=== PATIENT | female | born 1965 | race Caucasian/White ===

== ENCOUNTER 2024-10-16 10:33 | Observation (INO) ==
[2024-10-16 11:23] LABS: Basophils%(Percent) Auto 0.2 (0.1-0.85); Granulocytes % - Auto 84.2 % (47.8-71.3); Granulocytes#(Absolute)- Auto 4.4 (2.3-6.0); Hematocrit 38.1 % (35.9-46.7); Mean Corpuscular Volume 96.2 fl (81.0-93.7); Monocytes #(Absolute)- Auto 0.3 (1.1-3.1); Monocytes %(Percent)- Auto 4.9 % (3.6-9.8); Platelet Count 100 K/uL (152-353); White Blood Count 5.2 K/uL (4.3-9.3)
[2024-10-16] MEDS ORDERED: BUDESONIDE 0.5 MG/2 ML AMPUL.NEB INH ONE (11:24)
--- NOTE | 2024-10-16 11:24 | Emergency Department Note ---
HPI - General Adult General Chief complaint: SOB -Shortness of Breath Stated complaint: sent for fluids Time Seen by Provider: 10/16/24 10:42 Source: patient Mode of arrival: walk-in Limitations: no limitations History of Present Illness HPI narrative: This is a 59 year old female patient that presents to the ER with c/o cough, congestion, wheezing, SOB, for 3 days. Patient states she started antibiotics yesterday and steroids and is not feeling any better. Patient received 3 duonebs at her PCP today and steroids and still is wheezing. patient denies any chest pain, back pain, abdominal pain, numbness, tingling, weakness or N/V/D. Patients O2 sats at PCP was 80%RA per PCP Associated symptoms: Reports cough and shortness of breath Treatments prior to arrival: Reports other (duonebs x3, decadron, IVF) Related Data Allergies Allergy/AdvReac Type Severity Reaction Status Date / Time promethazine (From Phenergan) Allergy Verified 10/16/24 10:57 Sulfa (Sulfonamide Allergy Verified 10/16/24 10:57 Antibiotics) Review of Systems Status of ROS 10 or more systems reviewed and unremark able except as noted in history and below Constitutional Denies: fever, chills, change in weight, fatigue, malaise or night sweats Eyes Denies: change in vision, blurry vision, blind spots, light sensitivity, eye discomfort or eye discharge Ears, nose, mouth, and throat Denies: throat pain, neck pain, throat swelling, difficulty swallowing or hoarseness Cardiovascular Reports: shortness of breath with exertion; Denies: chest pain, palpitations, edema, swelling of feet/ankles, lightheadedness, shortness of breath when lying down, leg pain with exertion or bluish discoloration of hands/feet Respiratory Reports: shortness of breath, cough, wheezing and chest congestion; Denies: stridor, pain on inspiration, change in phlegm color or coughing up blood Gastrointestinal Denies: abdominal pain, nausea, vomiting, coffee grounds in vomit, heartburn, diarrhea or constipation Genitourinary Denies: painful urination, urinary frequency, urinary urgency, urinary incontinence or blood in urine Musculoskeletal Denies: back pain, neck pain, extremity pain, extremity swelling, joint pain or limited range of motion Integumentary/Breast Denies: rash, itching, redness, skin pain, skin tenderness, skin swelling or sores Neurological Denies: headache, numbness in extremities, weakness in extremities, lack of coordination, dizziness or vertigo Psychiatric Denies: anxiety, mood swings, panic attacks, change in sleep pattern, hopelessness or loss of interest Endocrine Denies: excessive urination, excessive thirst, fatigue, cold intolerance or excessive sweating Hematologic/Lymphatic Denies: easy bruising, easy bleeding or enlarged lymph nodes Allergic/Immunologic Reports: wheezing; Denies: hives, throat swelling, tongue swelling, facial swelling, itchy eyes or seasonal allergies [facility] Medical History (Updated 10/16/24 @ 11:18 by Dede Bah, RN) Pneumonia COVID GERD (gastroesophageal reflux disease) Insomnia Anxiety Surgical History (Updated 10/16/24 @ 11:18 by Dede Bah, RN) History of foot surgery History of cholecystectomy History of tubal ligation Previous section Social History Smoking status: unknown if ever smoked Exam Constitutional: normal general appearance and no apparent distress Vital Signs - 24 hr 10/16/24 10:42 10/16/24 11:35 Temperature 97.7 F Pulse Rate 113 H Respiratory Rate 18 Blood Pressure 130/72 Pulse Oximetry 95 95 HENMT: normocephalic, head/scalp atraumatic, hearing grossly normal bilaterally, external ears normal, nasal mucous membranes normal, external nose normal, oral mucous membranes normal and oropharynx normal Eyes: PERRL, EOMs intact bilaterally, conjunctivae normal and no scleral icterus Neck/C-Spine: visual inspection normal and trachea midline Lymph: no lymphadenopathy noted Chest: inspection of chest normal Respiratory: breath sounds equal bilaterally, normal respiratory effort, auscultation abnormal (diminished breath sound), wheezing noted (scattered wheezes), no rales, no retractions, no use of accessory muscles and chest percussion normal Cardiovascular: normal heart rate noted, regular rhythm noted, no gallop, no rub, no murmur, no JVD, no clicks, peripheral pulses 2+ throughout, no bruits noted and no additional abnormal heart sounds Gastrointestinal: abdomen normal to inspection, abdomen soft to palpation, nontender to palpation, nontender to percussion, nondistended, normoactive bowel sounds, no hepatosplenomegaly, no masses, no pulsatile mass, no ascites and no hernia Genitourinary: no CVA tenderness Back/Pelvis: spine normal to inspection Extremities: normal to inspection, normal to palpation, no tenderness, full ROM, no joint enlargement and no deformity Neurology: no movement abnormality noted, no focal motor deficit noted, no sensory deficits noted, gait normal, speech normal, coordination normal, no pronator drift noted, no fasciculations noted and GCS normal Psychiatry: mental status grossly normal, oriented x3, thought process normal, cooperative and affect normal Skin: skin color normal Course Course Hospital Course: 1203: Due to patients Low O2 sat of 80% initially and the ongoing wheezing and failed outpatient therapy, will admit patient to the hospital for further treatment and evaluation. VSS, no s/s of acute distress noted Vital Signs Vital signs: Vital Signs Temperature 97.7 F 10/16/24 10:42 Pulse Rate 113 H 10/16/24 10:42 Respiratory Rate 18 10/16/24 10:42 Blood Pressure 130/72 10/16/24 10:42 Pulse Oximetry 95 10/16/24 10:42 Temperature 97.7 F 10/16/24 10:42 Pulse Rate 113 H 10/16/24 10:42 Respiratory Rate 18 10/16/24 10:42 Blood Pressure 130/72 10/16/24 10:42 Pulse Oximetry 95 10/16/24 11:35 Medical Decision Making Differential Diagnosis Differential Diagnosis: viral illness Medical Records Medical records reviewed: Yes I reviewed the patient's medical records Lab Data Lab results reviewed: Yes I reviewed the patient's lab results Labs: Lab Results 10/16/24 Range/Units 11:15 WBC 5.2 (4.3-9.3) K/uL RBC 4.0 (4.00-5.50) M/uL Hgb 12.6 (12.5-15.8) gm/dL Hct 38.1 (35.9-46.7) % MCV 96.2 H (81.0-93.7) fl MCH 31.8 (27.6-32.2) pg MCHC 33.0 L (33.1-35.3) g/dl RDW 14.4 H (11.4-14.2) % Plt Count 100 L (152-353) K/uL MPV 13.4 H (6.9-10.8) fl Gran % 84.2 H (47.8-71.3) % Lymph % (Auto) 10.7 L (20.0-43.0) % [place] % (Auto) 4.9 (3.6-9.8) % Eos % (Auto) 0.0 L (0.4-2.8) % Baso % (Auto) 0.2 (0.1-0.85) Lymph # (Auto) 0.6 L (1.1-3.1) [place] # (Auto) 0.3 L (1.1-3.1) Eos # (Auto) 0.0 (0.0-0.2) Baso # (Auto) 0.0 (0.0-0.1) Absolute Gran (auto) 4.4 (2.3-6.0) Sodium 140 (136-145) mmol/L Potassium 2.8 L (3.6-5.2) mmol/L Chloride 105.0 (98-107) mmol/L Carbon Dioxide 23 (21-32) mmol/L Anion Gap 12.0 (4-14) mEq/L BUN 17 (7-18) mg/dL Creatinine 1.2 (0.6-1.3) mg/dL Estimated GFR 51.8 (>59.9) Glucose 163 H (70-110) mg/dL Lactic Acid 2.5 H (0.27-1.43) mmol/L Calcium 8.0 L (8.5-10.1) mg/dL Total Bilirubin 0.25 (0.0-1.0) mg/dL AST 16 (15-37) U/L ALT 18 L (30-65) U/L Alkaline Phosphatase 112 (50-136) U/L Total Protein 7.2 (6.4-8.2) g/dL Albumin 3.4 (3.4-5.0) g/dL Imaging Data Chest x-ray: My impression: + pneumonia Discharge Plan Discharge Patient Disposition: Admitted As Observation Condition: Stable Clinical Impression: Pneumonia, Hypoxia Time of Disposition: 12:08
[2024-10-16] MEDS: BUDESONIDE 0.5 MG/2 ML AMPUL.NEB INH ONE (11:35)
[2024-10-16 11:47] LABS: Potassium 2.8 mmol/L (3.6-5.2)
[2024-10-16] MEDS ORDERED: CEFTRIAXONE SODIUM 1 GM VIAL ONE (12:14)
[2024-10-16] MEDS ORDERED: 0.9 % SODIUM CHLORIDE MB+ 50 ML IV ONE (12:14)
[2024-10-16] MEDS: CEFTRIAXONE SODIUM 1 GM in 0.9 % SODIUM CHLORIDE MB+ 50 ML IV ONE (12:26)
[2024-10-16] MEDS ORDERED: 0.9 % SODIUM CHLORIDE 250 ML IV ONE (12:37)
[2024-10-16] MEDS ORDERED: AZITHROMYCIN 500 MG VIAL ONE (12:37)
[2024-10-16] MEDS: AZITHROMYCIN 500 MG 500 MG in 0.9 % SODIUM CHLORIDE 250 ML IV ONE (12:56)
[2024-10-16] MEDS: POTASSIUM CHLORIDE 20 MEQ TAB.ER.PRT PO ONE (12:57)
[2024-10-16] MEDS ORDERED: ACETAMINOPHEN 500 MG TABLET PO PRN (14:00)
[2024-10-16] MEDS ORDERED: MAGNESIUM, ALUMINUM HYDROXIDE 30 ML ORAL.SUSP PO PRN (14:00)
[2024-10-16] MEDS ORDERED: DOCUSATE SODIUM 100 MG CAPSULE PO PRN (14:00)
[2024-10-16] MEDS: IPRATROPIUM/ALBUTEROL SULFATE 3 ML AMPUL.NEB INH SCH (15:29)
[2024-10-16] MEDS: METHYLPREDNISOLONE SOD SUCC/PF 125 MG/2 ML VIAL INJ SCH (16:21)
[2024-10-16] MEDS: TEMAZEPAM 15 MG CAPSULE PO ONE (20:49)
[2024-10-16] MEDS: PANTOPRAZOLE SODIUM 40 MG TABLET.DR PO ONE (20:49)
[2024-10-16] MEDS: CITALOPRAM HYDROBROMIDE 20 MG TABLET PO ONE (20:49)
--- NOTE | 2024-10-16 21:35 | History & Physical Report ---
H&P: HPI History of Present Illness Chief complaint: pneumonia, hypoxia Narrative: A 59-year-old patient came into the ER stating that she suddenly developed difficulty breathing, cough, congestion x 3 days and got no relief at home From antibiotics and steroids that she started yesterday and she is even tighter today than she has been for the last 3 days with the coughing wheezing shortness of breath, so she was brought into the ER despite giving several DuoNebs in the ER she continued to be short of breath and very tight. Patient states that she has had several bouts of pneumonia and had asthma as a child. Mother had thrombocytopenia and she has thrombocytopenia chronically. Patient [place] any ill contacts, no fever, no chills, no known allergens or chemical contact no nausea vomiting no changes in bowel habits. Review of Systems Status of ROS 10 or more systems reviewed and unremark able except as noted in history and below Constitutional Denies: fever, chills, change in weight, fatigue, malaise or night sweats Eyes Denies: change in vision, blurry vision, blind spots, light sensitivity, eye discomfort or eye discharge Ears, nose, mouth, and throat Denies: throat pain, neck pain, throat swelling, difficulty swallowing, hoarseness or vertigo Cardiovascular Reports: shortness of breath with exertion; Denies: chest pain, palpitations, edema, swelling of feet/ankles, lightheadedness, shortness of breath when lying down, leg pain with exertion or bluish discoloration of hands/feet Respiratory Reports: shortness of breath, cough, wheezing and chest congestion; Denies: stridor, pain on inspiration, change in phlegm color or coughing up blood Gastrointestinal Denies: abdominal pain, nausea, vomiting, coffee grounds in vomit, heartburn, diarrhea, constipation or difficulty swallowing Genitourinary Denies: painful urination, urinary frequency, urinary urgency, urinary incontinence or blood in urine Musculoskeletal Denies: back pain, neck pain, extremity pain, extremity swel ling, joint pain or limited range of motion Integumentary/Breast Denies: rash, itching, redness, skin pain, skin tenderness, skin swelling or sores Neurological Denies: headache, numbness in extremities, weakness in extremities, lack of coordination, dizziness or vertigo Psychiatric Denies: anxiety, mood swings, panic attacks, change in sleep pattern, hopelessness or loss of interest Endocrine Denies: excessive urination, excessive thirst, fatigue, cold intolerance or excessive sweating Hematologic/Lymphatic Denies: easy bruising, easy bleeding or enlarged lymph nodes Allergic/Immunologic Reports: wheezing; Denies: hives, throat swelling, tongue swelling, facial swelling, itchy eyes or seasonal allergies [facility] Medical History (Updated 10/17/24 @ 10:40 by Bonnie Osborne DO) Pneumonia COVID GERD (gastroesophageal reflux disease) Insomnia Anxiety Surgical History History of foot surgery History of cholecystectomy History of tubal ligation Previous section Social History Smoking status: unknown if ever smoked Problems where you live: no known problems Highest level of school completed/degree received: high school Meds Home Medications and Allergies Home Medications Medication Instructions Recorded Confirmed Type citalopram 40 mg tablet 40 mg PO DAILY 10/16/2411/04 History levothyroxine 25 mcg tablet 25 mcg PO QDAC 10/16/24 History pantoprazole 40 mg tablet,delayed 40 mg PO BID 5 10/16/24 History release temazepam 30 mg capsule 30 mg PO Q24H 10/16/2410/16 History Allergies Allergy/AdvReac Type Severity Reaction Status Date / Time promethazine (From Phenergan) Allergy Verified 10/16/24 10:57 Sulfa (Sulfonamide Allergy Verified 10/16/24 10:57 Antibiotics) Exam Constitutional: abnormal general appearance (disheveled) and (chronically ill), distress noted (moderate) and (respiratory), abnormal body habitus (obese), limitations noted (physical limitations) and alert Vital Signs - 24 hr 10/16/24 10:42 10/16/24 11:35 10/16/24 12:00 Temperature 97.7 F Pulse Rate 113 H 101 H Pulse Rate [Left] Respiratory Rate 18 Blood Pressure 130/72 146/85 Blood Pressure [Le ft Arm] Pulse Oximetry 95 95 94 L Oxygen Delivery Me thod 10/16/24 12:30 10/16/24 13:05 10/16/24 13:27 Temperature Pulse Rate 98 H 97 H Pulse Rate [Left] Respiratory Rate 19 Blood Pressure 140/76 143/68 Blood Pressure [Le ft Arm] Pulse Oximetry 93 L 95 97 Oxygen Delivery Me thod Room Air 10/16/24 15:29 10/16/24 15:59 10/16/24 19:45 Temperature 98.4 F 98.3 F Pulse Rate Pulse Rate [Left] 104 H 92 H Respiratory Rate 17 19 Blood Pressure Blood Pressure [Le ft Arm] 115/64 131/69 Pulse Oximetry 97 95 96 Oxygen Delivery Me thod Room Air 10/16/24 20:14 Temperature Pulse Rate Pulse Rate [Left] Respiratory Rate Blood Pressure Blood Pressure [Le ft Arm] Pulse Oximetry 97 Oxygen Delivery Me thod HENMT: normocephalic, head/scalp atraumatic, hearing grossly normal bilaterally, external ears normal, TMs abnormal, nasal mucous membranes abnormal, external nose normal, oral mucous membranes abnormal and oropharynx normal Eyes: PERRL, EOMs intact bilaterally, conjunctivae normal, no scleral icterus, papilledema noted and periorbital findings normal Neck/C-Spine: abnormal to visual inspection, trachea midline, cervical spine nontender, abnormal cervical ROM noted, supple and no meningeal signs Lymph: no lymphadenopathy noted and no lymphedema noted Chest: inspection of chest normal Respiratory: breath sounds equal bilaterally, abnormal respiratory effort (labored), auscultation abnormal (diminished breath sound), wheezing noted (scattered wheezes), no rales, no retractions, no use of accessory muscles and chest percussion normal Cardiovascular: heart rate abnormal (tachycardic), regular rhythm noted, no gallop, no rub, no murmur, no JVD, no clicks, peripheral pulses 2+ throughout, no bruits noted and no additional abnormal heart sounds Gastrointestinal: abdomen normal to inspection, abdomen soft to palpation, nontender to palpation, nontender to percussion, nondistended, normoactive bowel sounds, no hepatosplenomegaly, no masses, no pulsatile mass, no ascites and no hernia Genitourinary: no CVA tenderness and bladder normal to palpation Back/Pelvis: spine abnormal to inspection, no thoracic spine tenderness, lumbar spine tenderness noted, thoracic spine ROM abnormal, lumbar spine ROM abnormal and no paraspinal muscle tenderness noted Extremities: normal to inspection, normal to palpation, no tenderness, full ROM, no joint enlargement and no deformity Neurology: 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 statistical programmer II-XII intact, no movement abnormality noted, no focal motor deficit noted, sensory deficit noted, gait abnormality noted, speech normal, coordination normal, no pronator drift noted, no fasciculations noted and GCS normal Psychiatry: Mental Status Exam documented within this Exam's Psych section mental status grossly normal, oriented x3, thought process normal, cooperative, affect abnormality noted (depressed), psychomotor activity normal and memory normal Feel stressed/tense/nervous/anxious/difficulty sleeping: not at all Skin: skin color abnormal Reports (pale), no rash, no lesions, ecchymosis noted, skin turgor abnormal Reports (tenting), no jaundice, no petechiae, no mottling, nails abnormality noted and no alopecia Assessment and Plan Assessment and Plan (1) Asthma attack: Qualifiers: Asthma severity: mild Asthma persistence: intermittent Qualified Code(s): J45.21 - Mild intermittent asthma with (acute) exacerbation Code(s): J45.901 - Unspecified asthma with (acute) exacerbation (2) Thrombocytopenia: Code(s): D69.6 - Thrombocytopenia, unspecified (3) Anemia: Qualifiers: Anemia type: other cause Other causes of anemia: other cause, not classified Qualified Code(s): D64.89 - Other specified anemias Code(s): D64.9 - Anemia, unspecified (4) Hypokalemia: Code(s): E87.6 - Hypokalemia (5) Insomnia: Qualifiers: Insomnia type: psychophysiologic Qualified Code(s): F51.04 - Psychophysiologic insomnia Code(s): G47.00 - Insomnia, unspecified (6) Anxiety: Code(s): F41.9 - Anxiety disorder, unspecified (7) GERD (gastroesophageal reflux disease): Qualifiers: Esophagitis presence: with esophagitis Esophagitis bleeding: without hemorrhage Qualified Code(s): K21.00 - Gastro-esophageal reflux disease with esophagitis, without bleeding Code(s): K21.9 - Gastro-esophageal reflux disease without esophagitis Plan 0.9% at 100 mL/h Zithromax 5 mg IV daily Rocephin 1 g IV every 24 hours Tylenol 1000 mg every 4 hours as needed pain fever Pulmicort 0.5 mg inhaled every 12 hours DuoNebs every 6 hours Potassium 40 mill equivalents p.o. x 1 Cardiac monitoring continuous pulse ox Results Labs Labs: CBC 10/16/24 Range/Units 11:15 WBC 5.2 (4.3-9.3) K/uL RBC 4.0 (4.00-5.50) M/uL Hgb 12.6 (12.5-15.8) gm/dL Hct 38.1 (35.9-46.7) % Plt Count 100 L (152-353) K/uL Gran % 84.2 H (47.8-71.3) % Lymph % (Auto) 10.7 L (20.0-43.0) % [place] % (Auto) 4.9 (3.6-9.8) % Eos % (Auto) 0.0 L (0.4-2.8) % Baso % (Auto) 0.2 (0.1-0.85) Lymph # (Auto) 0.6 L (1.1-3.1) [place] # (Auto) 0.3 L (1.1-3.1) Eos # (Auto) 0.0 (0.0-0.2) Baso # (Auto) 0.0 (0.0-0.1) Absolute Gran (auto) 4.4 (2.3-6.0) CMP 10/16/24 11:15 Sodium 140 Potassium 2.8 L Chloride 105.0 Carbon Dioxide 23 BUN 17 Creatinine 1.2 Glucose 163 H Calcium 8.0 L Liver Function 10/16/24 Range/Units 11:15 Total Bilirubin 0.25 (0.0-1.0) mg/dL AST 16 (15-37) U/L ALT 18 L (30-65) U/L Alkaline Phosphatase 112 (50-136) U/L Albumin 3.4 (3.4-5.0) g/dL Pulse Oximetry Attestation: I have reviewed the pertinent pulse oximetry results. ECG Attestation: I have reviewed the pertinent ECG results. Imaging Imaging ordered: Chest x-ray Attestation: I have reviewed the pertinent imaging results. Radiologist's impression: EXAM: XR CHEST 1V HISTORY: painpain; MF COMPARISON: January 04, 2021 FINDINGS: The trachea is midline. The cardiac silhouette is unremarkable. The lungs are clear without focal infiltrate or effusion. The bony thorax is unremarkable. IMPRESSION: No acute cardiopulmonary disease.
[2024-10-17 05:52] LABS: Basophils%(Percent) Auto 0.3 (0.1-0.85); Granulocytes % - Auto 88.7 % (47.8-71.3); Granulocytes#(Absolute)- Auto 4.5 (2.3-6.0); Hematocrit 34.7 % (35.9-46.7); Monocytes #(Absolute)- Auto 0.1 (1.1-3.1); Monocytes %(Percent)- Auto 2.6 % (3.6-9.8); Platelet Count 94 K/uL (152-353); White Blood Count 5.1 K/uL (4.3-9.3)
[2024-10-17 06:51] LABS: Potassium 4.6 mmol/L (3.6-5.2)
[2024-10-17] MEDS: CEFTRIAXONE SODIUM 1 GM in 0.9 % SODIUM CHLORIDE MB+ 50 ML IV SCH (11:50)
[2024-10-17 12:06] VITALS: BP 136/71; PULSE 116; RESP 20; TEMP 97.9
[2024-10-17] MEDS ORDERED: AZITHROMYCIN 500 MG 500 MG in 0.9 % SODIUM CHLORIDE 250 ML IV SCH (13:00)
--- NOTE | 2024-10-17 14:17 | Discharge Summary ---
DS: Providers Provider Date of admission: 10/16/24 12:33 Primary care physician: Gwendolyn Mesa Admitting clinician: Arelis Blank Attending physician on admission: Bonnie Osborne Attending physician on discharge: Bonnie Osborne Discharging clinician: Bonnie Osborne Anticipated date of discharge: 10/17/24 DS: Diagnosis Discharge Diagnosis (1) Asthma attack: Qualifiers: Asthma persistence: intermittent Asthma severity: mild Qualified Code(s): J45.21 - Mild intermittent asthma with (acute) exacerbation (2) Thrombocytopenia: (3) Anemia: Qualifiers: Anemia type: other cause Other causes of anemia: other cause, not classified Qualified Code(s): D64.89 - Other specified anemias (4) Hypokalemia: (5) Insomnia: Qualifiers: Insomnia type: psychophysiologic Qualified Code(s): F51.04 - Psychophysiologic insomnia (6) Anxiety: (7) GERD (gastroesophageal reflux disease): Qualifiers: Esophagitis bleeding: without hemorrhage Esophagitis presence: with esophagitis Qualified Code(s): K21.00 - Gastro-esophageal reflux disease with esophagitis, without bleeding (8) Hypothyroidism (acquired): DS: Summary Hospital Course Hospital Course: 1203: Due to patients Low O2 sat of 80% initially and the ongoing wheezing and failed outpatient therapy, will admit patient to the hospital for further treatment and evaluation. VSS, no s/s of acute distress noted Patient states she started to feel better even while in the ER otherwise to have some difficulty with her breathing potassium of 2.8 on admission had improved to 4.6 with administration of medications throughout hospital stay. Patient tolerated the DuoNebs and Pulmicort embolizations and the Solu-Medrol. Hemoglobin did drop felt probably secondary to hydration no obvious loss otherwise blood count was stable at 5.2 Status at Discharge Cognitive/behavioral status at discharge: Advised patient discuss with her PCP about preventative medications in case this exacerbations of her asthma secondary to GERD and weight may become a bigger issue she may need different medication Functional status at discharge: independent ambulation Overall status at discharge: patient is progressing back to baseline Time Spent with Patient Time attestation: Total time spent providing and/or coordinating discharge services: 58 Time spent: greater than 30 minutes Exam Constitutional: normal general appearance, no apparent distress, abnormal body habitus (obese), limitations noted (physical limitations) and alert Vital Signs - 24 hr 10/16/24 15:29 10/16/24 15:59 10/16/24 19:45 Temperature 98.4 F 98.3 F Pulse Rate [Left] 104 H 92 H Respiratory Rate 17 19 Blood Pressure [Le ft Arm] 115/64 131/69 Pulse Oximetry 97 95 96 Oxygen Delivery Me thod Room Air 10/16/24 20:14 10/16/24 23:25 10/16/24 23:55 Temperature 98.3 F Pulse Rate [Left] 100 H Respiratory Rate 17 Blood Pressure [Le ft Arm] 114/58 Pulse Oximetry 97 100 97 Oxygen Delivery Dc thod Room Air 10/17/24 03:30 10/17/24 07:51 10/17/24 07:56 Temperature 97.8 F 98.3 F Pulse Rate [Left] 96 H 107 H Respiratory Rate 19 17 Blood Pressure [Le ft Arm] 109/63 129/70 Pulse Oximetry 92 L 98 93 L Oxygen Delivery Dc thod Room Air Room Air 10/17/24 11:33 10/17/24 12:00 Temperature 97.9 F Pulse Rate [Left] 116 H Respiratory Rate 20 Blood Pressure [Le ft Arm] 136/71 Pulse Oximetry 95 92 L Oxygen Delivery Dc thod Room Air HENMT: normocephalic, head/scalp atraumatic, hearing grossly normal bilaterally, external ears normal, TMs abnormal, nasal mucous membranes abnormal , external nose normal, oral mucous membranes normal and oropharynx normal Eyes: PERRL, EOMs intact bilaterally, conjunctivae normal, no scleral icterus, papilledema noted and periorbital findings normal Neck/C-Spine: abnormal to visual inspection, trachea midline, cervical spine nontender, abnormal cervical ROM noted, supple and no meningeal signs Lymph: no lymphadenopathy noted and no lymphedema noted Chest: inspection of chest normal Respiratory: breath sounds equal bilaterally, normal respiratory effort, auscultation abnormal (diminished breath sound), wheezing noted (Improved) (scattered wheezes), no rales, no retractions, no use of accessory muscles and chest percussion normal Cardiovascular: heart rate abnormal (tachycardic), regular rhythm noted, no gallop, no rub, no murmur, no JVD, no clicks, peripheral pulses 2+ throughout, no bruits noted and no additional abnormal heart sounds Gastrointestinal: abdomen normal to inspection, abdomen soft to palpation, nontender to palpation, nontender to percussion, nondistended, normoactive bowel sounds, no hepatosplenomegaly, no masses, no pulsatile mass, no ascites and no hernia Genitourinary: no CVA tenderness and bladder normal to palpation Back/Pelvis: spine abnormal to inspection, no thoracic spine tenderness, lumbar spine tenderness noted, thoracic spine ROM abnormal, lumbar spine ROM abnormal and no paraspinal muscle tenderness noted Extremities: normal to inspection, normal to palpation, no tenderness, full ROM, no joint enlargement and no deformity Neurology: proof carrier II-XII intact, no movement abnormality noted, no focal motor deficit noted, sensory deficit noted, gait abnormality noted, speech normal, coordination normal, no pronator drift noted, no fasciculations noted and GCS normal Psychiatry: Mental Status Exam documented within this Exam's Psych section mental status grossly normal, oriented x3, thought process normal, cooperative, affect abnormality noted (depressed), psychomotor activity normal and memory normal Feel stressed/tense/nervous/anxious/difficulty sleeping: not at all Skin: skin color normal, no rash, no lesions, ecchymosis noted, skin turgor normal, no jaundice, no petechiae, no mottling, nails abnormality noted and no alopecia DS: Data Data Completed and Pending Labs on day of discharge: Labs from last 24 hours 10/17/24 10/16/24 05:45 14:00 WBC 5.1 RBC 3.7 L Hgb 11.7 L Hct 34.7 L MCV 95.0 H MCH 32.1 MCHC 33.8 RDW 14.4 H Plt Count 94 L MPV 13.1 H Gran % 88.7 H Lymph % (Auto) 8.4 L [place] % (Auto) 2.6 L Eos % (Auto) 0.0 L Baso % (Auto) 0.3 Lymph # (Auto) 0.4 L [place] # (Auto) 0.1 L Eos # (Auto) 0.0 Baso # (Auto) 0.0 Absolute Gran (auto) 4.5 Sodium 141 Potassium 4.6 Chloride 110.0 H Carbon Dioxide 22 Anion Gap 9.0 BUN 14 Creatinine 1.0 Estimated GFR 64.5 Glucose 133 H Lactic Acid 2.3 H Calcium 8.3 L Discharge Plan Discharge Disposition: Home, Self-Care Condition: Improved Discharge Medications: New azithromycin [Zithromax Z-Collins] 250 mg tablet See Rx Instructions .ROUTE .COMPLEX Qty: 6 0RF Rx Instructions: For 250 mg dose pack: take 500 mg today (day 1), then 250 mg for 4 days (days 2-5) methylprednisolone [Medrol (Collins)] 4 mg tablets,dose pack See Rx Instructions .ROUTE .COMPLEX Qty: 21 0RF Rx Instructions: for 6 days Continued citalopram 40 mg tablet 40 mg PO DAILY pantoprazole 40 mg tablet,delayed release (DR/EC) 40 mg PO BID temazepam 30 mg capsule 30 mg PO Q24H levothyroxine 25 mcg tablet 25 mcg PO QDAC Rx Instructions: SPOKE WITH PATIENT, SHE STARTED TAKING THE MEDICATION IN AUGUST BUT STOPPED TAKING IT ON HER OWN. STATED SHE NEEDED TO START TAKING IT AGAIN. Discharge Orders: Discharge Order (Routine); Ordered 10/17/24 Ordered By: Bonnie Osborne Activity: increase activity as tolerated Diet: advance to your usual diet Interventions: Discharge Assessment Last Done: 10/17/24 13:27 MED/SURG & ICU Observation Charge Sheet Last Done: 10/17/24 13:30 Activity Restrictions/Additional Instructions: Follow-up PCP next week to obtain education on asthma and maintenance and to consider PFTs Advised patient discuss with her PCP about preventative medications in case this exacerbations of her asthma secondary to GERD and weight may become a bigger issue she may need different medication Forms: Portal/Health Info Access Inst Follow-Ups: Gwendolyn Mesa [Primary Care Provider, Medical]
== END 2024-10-17 15:10 | disposition home or self-care (01) ==
LOC: MS 10:33 → ED 10:33 → MS 13:13
PROVIDERS: ADMIT Family Medicine; ATTEND Family Medicine
DX: J45.21 Mild intermittent asthma with (acute) exacerbation; K21.00 Gastro-esophageal reflux disease with esophagitis, without bleeding; D69.6 Thrombocytopenia, unspecified; D64.89 Other specified anemias; E87.6 Hypokalemia; J18.9 Pneumonia, unspecified organism; Z86.16 Personal history of COVID-19; Z79.890 Hormone replacement therapy; Z79.899 Other long term (current) drug therapy; F51.04 Psychophysiologic insomnia; R09.02 Hypoxemia; Z88.2 Allergy status to sulfonamides; F41.9 Anxiety disorder, unspecified; E03.9 Hypothyroidism, unspecified; Z88.8 Allergy status to other drugs, medicaments and biological substances